=== PATIENT | female | born 1960 | race Caucasian/White ===

== ENCOUNTER 2017-01-12 11:06 | Emergency (ER) | payer OTHER ==
[~2017-01-12] VITALS: Ht 165.1 cm; Wt 56.0 kg
[2017-01-12] MEDS ORDERED: EC-NAPROSYN500 MG PO (11:40)
[2017-01-12] MEDS ORDERED: LORTAB 5/3255 MG PO (11:40)
[2017-01-12] MEDS ORDERED: FLEXERIL PO (11:40)
[2017-01-12 11:55] VITALS: BP 131/81
== END 2017-01-12 11:55 | disposition home or self-care (01) | DRG 552 ==
LOC: ED 11:06
DX: M54.40 Lumbago with sciatica, unspecified side (principal); F17.210 Nicotine dependence, cigarettes, uncomplicated; M19.90 Unspecified osteoarthritis, unspecified site

== ENCOUNTER 2017-10-12 07:23 | Emergency (ER) | payer OTHER ==
[~2017-10-12] VITALS: Ht 165.1 cm; Wt 70.0 kg
[~2017-10-12 07:23] MED LIST: EC-NAPROSYN500 MG PO; FLEXERIL PO; LORTAB 5/3255 MG PO
[2017-10-12] MEDS ORDERED: ADVAIR DISK1 IN (08:37)
[2017-10-12] MEDS ORDERED: CYMBALTA60 MG PO (08:38)
[2017-10-12] MEDS ORDERED: VENTOLIN HFA IN (08:38)
[2017-10-12] MEDS ORDERED: GABAPENTIN100 MG PO (08:39)
[2017-10-12] MEDS ORDERED: Levaquin PO (08:39)
[2017-10-12] MEDS ORDERED: MIRTAZAPINE30 MG PO (08:40)
[2017-10-12] MEDS ORDERED: LISINOPRIL20 MG PO (08:40)
[2017-10-12] MEDS ORDERED: AMLODIPINE BESYL5 MG PO (08:41)
[2017-10-12] MEDS ORDERED: PREMARIN0.3 MG PO (08:41)
[2017-10-12 08:46] LABS: URINE BILIRUBIN - DIPSTICK NEGATIVE (NEGATIVE); URINE COLOR YELLOW; URINE GLUCOSE - DIPSTICK NEGATIVE (NEGATIVE); URINE KETONE NEGATIVE (NEGATIVE); URINE LEUK ESTERASE NEGATIVE (NEGATIVE); URINE NITRITE - DIPSTICK NEGATIVE (Negative); URINE PH 6.5 (4.5-8.0); URINE PROTEIN - DIPSTICK NEGATIVE (NEG-TRACE); URINE UROBILINOGEN - DIPSTICK 0.2 E.U./dL (0.2)
[2017-10-12 08:49] LABS: URINE BLOOD DIPSTICK NEGATIVE (NEGATIVE); URINE CLARITY CLEAR
[2017-10-12 08:50] LABS: BARBITURATES NEGATIVE (NEGATIVE); COCAINE POSITIVE (NEGATIVE); METHADONE NEGATIVE (NEGATIVE); OXCYCODONE NEGATIVE (NEGATIVE); TETRAHYDROCANNABIONOL NEGATIVE (NEGATIVE); TRICYLIC ANTIDEPRESSANTS NEGATIVE (NEGATIVE)
[2017-10-12] MEDS ORDERED: MOBIC15 MG PO (09:08)
[2017-10-12] MEDS ORDERED: MEDDOSEPAK PO (09:08)
[2017-10-12] MEDS ORDERED: FLEXERIL PO (09:08)
[2017-10-12 09:47] VITALS: BP 114/84
== END 2017-10-12 09:47 | disposition home or self-care (01) ==
LOC: ED 07:23
PROVIDERS: Emergency Medicine
DX: M54.5 Low back pain (principal); G89.29 Other chronic pain; I10 Essential (primary) hypertension; F17.210 Nicotine dependence, cigarettes, uncomplicated